=== PATIENT | female | born 1965 | race Caucasian/White ===

== ENCOUNTER 2024-09-06 09:22 | Day surgery (SDC) | payer BC, SELFPAY ==
[2024-08-31 07:56] VITALS: BMI 28.5
--- NOTE | 2024-09-06 07:51 | P.HP_ITS ---
History of Present Illness History of Present Illness [place] [facility] [place]ative: 59 female presents for ongoing right foot pain. The spur on the top of foot has been causing discomfort for more than a year. Conservative treatments, including two steroid injection, failed to provide lasting relief. Patient would like to proceed with surgical intervention. Patient denies n/v/f/c/sob/cp. FORMERLY [facility], [facility] Medical History (Updated 08/31/24 @ 07:48 by Marilin Myrick RN) Atrophic vaginitis Hypercholesteremia Hypothyroid Pre-diabetes HPV in female HTN (hypertension) Social History household members: spouse Smoking Status: Former smoker alcohol intake: current Meds Home Medications and Allergies Home Medications Medication Instructions Recorded Confirmed Type estradiol 10 mcg vaginal tablet 10 mcg vaginal 2XW 08/31/24 08/31/24 History levothyroxine 50 mcg tablet 50 mcg PO DAILY 08/31/24 08/31/24 History lisinopril 10 1 tab PO DAILY 08/31/24 08/31/24 History mg-hydrochlorothiazide 12.5 mg tablet nitrofurantoin macrocrystal 50 mg 50 mg PO PRN PRN prevent UTI 08/31/24 08/31/24 History capsule Allergies Allergy/AdvReac Type Severity Reaction Status Date / Time Sulfa (Sulfonamide Allergy Verified 08/31/24 07:50 Antibiotics) Exam Extrem Other: Right foot: Increased medial longitudinal arch with external tibial torsion. Plantarflexed first ray. Dorsal bony eminence at tarsometatarsal joint 1. Assessment & Plan Assessment & Plan narrative: 1. Right foot first metatarsocuneiform joint osteophytes Patient seen and evaluated. Surgical plan: right foot partial excision first metatarsal and medial cuneiform osteophytes. Risks and benefits of the procedure discussed with all questions answered to patient's satisfaction. Reviewed potential complications that may include but not limited to the following: DVT, failure to resolve all symptoms, infection, nerve injury, bleeding, recurrence, or wound. Reviewed surgical technique and general aftercare protocols. All questions answered to patient's satisfaction with no guarantees made. Patient verbalized understanding and agreed with surgical plan. RTC for post-op. Time-Based Coding :: [TOTAL MINUTES] spent with patient and on the chart (including review of chart, obtaining history, exam, reviewing outside data, placing orders, documenting exam and treatment plan, and counseling patient) on [DATE].
--- NOTE | 2024-09-06 07:59 | PM.PREOP ---
Pre-operative Note Interval Note History & Physical reviewed/Exam performed by Physician: Yes Changes to H&P: No
[2024-09-06] MEDS: ACETAMINOPHEN 325 MG TABLET 975 MG PO (09:50)
[2024-09-06] MEDS: LACTATED RINGERS 1,000 ML 100 ML IV (09:54)
[2024-09-06 09:55] VITALS: BMI 27.9
[2024-09-06 10:18] VITALS: BP 146/89; PULSE 84; RESP 14; TEMP 37; O2SAT 99
[2024-09-06] MEDS: CEFAZOLIN 2 GM/100 ML PREMIX 100 ML IV (10:59)
[2024-09-06] MEDS: LIDOCAINE 1% 20 ML INJ (11:18)
--- NOTE | 2024-09-06 11:25 | SUR.OPER ---
Supine on padded OR bed, head on pillow, arms secured on padded arm boards at <90 degrees abduction, legs uncrossed, safety belt abdomen, tape over blanket over lower non op leg
[2024-09-06] MEDS: BUPIVACAINE 0.25% (PF) VIAL 30 ML INJ (11:53)
[2024-09-06] MEDS: BUPIVACAINE LIPOSOME 266 MG/20 ML VIAL INJ (11:54)
--- NOTE | 2024-09-06 11:58 | SUR.OPER ---
8cc total of 1\2, 1\2 mixture of exparel and 0.25% marcaine plain. to right foot
[2024-09-06 12:13] VITALS: BP 154/74; PULSE 70; RESP 16; TEMP 36.4; O2SAT 98
[2024-09-06 12:18] VITALS: BP 154/78; PULSE 73; RESP 16; O2SAT 98
[2024-09-06 12:26] VITALS: BP 155/81; PULSE 73; RESP 16; TEMP 36.8
[2024-09-06] MEDS: OXYCODONE IR 5 MG TABLET PO (13:00)
[2024-09-06 13:07] VITALS: BP 151/78; PULSE 72; RESP 16; TEMP 36.4; O2SAT 99
--- NOTE | 2024-09-11 12:03 | P.OP_ITS ---
Operative Date/Time/Diagnoses Date of procedure: 09/06/24 Pre-op diagnosis: 1. Right foot first metatarsocuneiform joint osteophyte Post-op diagnosis: same Procedure & Clinicians Procedure: 1. Right foot partial excision first metatarsal and medial cuneiform osteophytes Same procedure as scheduled: Yes Indications: Continuous pain that failed conservative therapy Surgeon: Carlos Hernandez Click Yes if Unassisted: Yes Anesthesia Type: Sedation Operative Notes Findings: Consistent with diagnosis Closure Type: primary Specimen(s): none sent Estimated Blood Loss (mL): 10 Tourniquet time (min): 24 Procedure in detail: Patient was identified and brought into operating on [facility] and transferred onto operating table in supine position. Deep sedation and local pretty was administered. An ankle tourniquet was applied over well-padded surface and set to 250 mmHg. Right foot was prepped and draped with usual sterile fashion, followed by official timeout with the surgical team. Attention was directed to right midfoot. A linear incision was made using a # 15 scalpel over the palpable bony prominence at dorsal first metatarsocuneiform joint. Dissection was carried out in layers with care to protect neurovascular structures. At the level of bone and joint, an osteotome and mallet was used to remove the flare. The surgical site was then smoothed out using a rasp. Adequate excision as verified on fluoroscopy Surgical site was irrigated using copious saline and closed from deep to superficial using 3-0 vicryl, 4-0 vicryl, and 4-0 nylon. Incision site was dressed with iodine soaked Adaptic, gauze, abdominal pad, Kerlix, and Paulino bandage. Patient tolerated procedure without complication and was transferred to post-anesthesia care unit with all vital signs stable. Complications: none Post-operative Condition: stable Disposition: same day surgery Plan for aftercare: Limited heel weight-bearing in surgical shoe. Keep dressing clean, dry, and intact. Elevate surgical limb above heart.
== END 2024-09-06 13:27 | disposition home or self-care (01) ==
PROVIDERS: Referring Provider Podiatrist Foot & Ankle Surgery; Visit Provider Podiatrist Foot & Ankle Surgery
PROC: (CPT 28122; principal; 2024-09-06 10:45)
DX: M25.774 Osteophyte, right foot (principal)
CPT/HCPCS: 28122; C9290; J0690; J1100; J1885; J2405; J2704; J3010